=== PATIENT | female | born 1970 | race Caucasian/White ===

== ENCOUNTER 2023-04-27 22:56 | Emergency (ER) | payer OTHER ==
[~2023-04-27] VITALS: Ht 162.6 cm; Wt 68.0 kg
[2023-04-27 23:03] VITALS: O2SAT 99
[2023-04-28] MEDS: KETOROLAC 30MG/ML VIAL IM ONE (08:45)
[2023-04-28] MEDS: METHOCARBAMOL 500MG TABLET PO ONE (08:45)
[2023-04-28] MEDS ORDERED: METH-653 MT (09:05)
[2023-04-28] MEDS ORDERED: IBUP-2029 MT (09:05)
[2023-04-28 09:35] VITALS: BP 92/72; PULSE 63; RESP 17; TEMP 98
== END 2023-04-28 10:12 | disposition home or self-care (01) ==
LOC: ER 23:25
DX: S13.4XXA Sprain of ligaments of cervical spine, initial encounter (principal); I10 Essential (primary) hypertension; X58.XXXA Exposure to other specified factors, initial encounter; Y93.89 Activity, other specified; Y92.89 Other specified places as the place of occurrence of the external cause; Y99.8 Other external cause status
CPT/HCPCS: 99283; 96372; J1885